=== PATIENT | female | born 1960 | race Two or more races ===

== ENCOUNTER 2019-12-24 12:20 | Emergency (ER) | payer MEDICAID ==
[~2019-12-24] VITALS: Ht 160 cm; Wt 76.2 kg
[~2019-12-24 12:20] MED LIST: LEVO88TA4 PO
--- NOTE | 2019-12-24 14:07 | NUR ---
PT AMBULATORY TO ROOM AT THIS TIME
[2019-12-24 14:42] VITALS: BP 134/74
== END 2019-12-24 14:44 | disposition home or self-care (01) ==
LOC: ED 14:20
DX: L50.1 Idiopathic urticaria (principal)
CPT/HCPCS: 99283

== ENCOUNTER 2020-02-04 12:39 | Emergency (ER) | payer MEDICAID ==
[~2020-02-04] VITALS: Ht 160 cm; Wt 73.9 kg
[2020-02-04 12:44] VITALS: BP 135/68
[2020-02-04] MEDS ORDERED: KETOROLAC 30 MG/1 ML ONE (14:15)
--- NOTE | 2020-02-04 14:20 | NUR ---
pt medicated per emar. pt tolerated well.
--- NOTE | 2020-02-04 14:26 | NUR ---
Patient given discharge instructions and they have confirmed that they understand the instructions. Patient ambulatory with steady gait.
[2020-02-04] MEDS ORDERED: KETOROLAC 30 MG/1 ML IM ONE (14:30)
== END 2020-02-04 14:28 | disposition home or self-care (01) ==
LOC: ED 12:45
DX: H60.503 Unspecified acute noninfective otitis externa, bilateral (principal); J45.909 Unspecified asthma, uncomplicated; Z90.49 Acquired absence of other specified parts of digestive tract
CPT/HCPCS: 96372; 99283; J1885